=== PATIENT | female | born 1950 ===

== ENCOUNTER 2023-06-26 08:16 | Outpatient (CLI) | payer MEDICARE, SELFPAY ==
--- NOTE | 2023-06-26 06:00 | DI.RAD_ITS ---
Exam(s) XR PAIN CLINIC LUMBAR SP 2V EXAM: XR PAIN CLINIC LUMBAR SP 2V CLINICAL HISTORY: Dx: Lumbar Radiculopathy TECHNIQUE: 2D and realtime digital imaging was performed. CONTRAST MATERIAL: Refer to procedure report. COMPARISON: No exams were available for comparison FINDINGS: Fluoroscopy was provided for Dr. Prasad during the performance of a lumbar transforaminal epidural nikia roid injection. Please refer to the procedure report for complete details. Ka,r=12.7 mGy IMPRESSION:
[2023-06-26 08:30] VITALS: BP 112/53; PULSE 86; RESP 20; TEMP 36.5; O2SAT 94
[2023-06-26] MEDS: Dexamethasone Sod. Phos./Pres-Free 10 MG/ML VIAL IJ (08:52)
[2023-06-26 09:05] VITALS: BP 141/51; PULSE 88; RESP 16; O2SAT 97
--- NOTE | 2023-06-26 09:12 | PDOC.PAIN_ITS ---
Date of service: 06/26/23 Time of Service: 09:13 Pain Managment Procedure Note Procedure Note Procedure Note: LUMBAR / SACRAL TRANSFORAMINAL INJECTION VINAY AVILA has been referred to the [facility] for a transforaminal nerve root block and steroid injection. COMMENTS: She states that she had a fall 3 weeks ago and has had left foot drop since the fall. No bowel or bladder incontinence. No saddle anesthesia. Pre-procedure pain VAS was 7/10. She is allergic to contrast dye, so this was omitted from the procedure Her last Hem A1c was 8.4, so we reduced the Dexamethasone to 10 mg.. Dx: Lumbosacral radiculopathy Patient was interviewed and the medical record reviewed. There were no medical, pharmacologic, radiographic or other structural contraindications to attempting fluoroscopically guided transforaminal nerve root block and epidural steroid injection. Risks and expected side effects as well as potential benefit of the procedure were reviewed and voiced concerns addressed. The printed consent form was signed and witnessed. Standard time-out procedure was performed. Patient was placed in the prone position on the fluoroscopy table and automated blood pressure cuff and pulse oximeter applied. Fluoroscopy was utilized to identify the left L5 neural foramen between L5 and S1 . A skin latisha was made for the needle insertion site. A Chlorhexadine prep was carried out, and sterile drapes were applied. Local anesthesia was achieved in the skin and subcutaneous tissues. A 22 gauge curved tip spinal needle was then inserted, advanced with fluoroscopic guidance into the neural foramen, confirmed on the lateral view. After negative aspiration, 1 ml of 1% Lidocaine was injected confirming immediate sensation to the left leg in her area of pain. There was no blood or clear fluid with aspiration. 10 mg of Dexamethasone was injected, followed by 0.5 ml of 1% Xylocaine flush for the nerve root block, as well. There was no unusual dis comfort expressed.The needle was withdrawn. The patient tolerated the procedure well. A Band-Aid was applied. Vital signs were stable throughout the procedure and were as recorded in nursing records. If given, dosages of intravenous drugs for anxiolysis and analgesia were documented in nursing records. Follow up plans and appointments were discussed. Post procedure instruction was given as documented in nursing records and patient was discharged in the care of an identified driver merchandiser. COMMENTS:Post-procedure pain VAS was 0/10. I did order a left Ankle Foot Orthosis (AFO) and sent the referral to [facility]. She should begin wearing this immediately. We also need to keep a close eye on the left foot drop. She may need a repeat lumbar spine MRI and an evaluation with a spine surgeon if the left foot drop does not resolve soon. She understands. Diego Prasad DO, MPH [facility] CC: Daysi Vega
== END 2023-06-26 08:17 | disposition home or self-care (01) ==
LOC: PC 08:18
PROVIDERS: PCP Internal Medicine; Visit Provider Preventive Medicine Occupational Medicine
DX: M54.50 Low back pain, unspecified (principal); M54.17 Radiculopathy, lumbosacral region
CPT/HCPCS: 64483; 72100